=== PATIENT | female | born 1975 | race Caucasian/White ===

== ENCOUNTER 2016-08-13 12:53 | Outpatient (CLI) | payer OTHER ==
[~2016-08-13 12:53] MED LIST: LEVO50TA5 PO; PROG1.3G TP; [UNRECOGNIZED DRUG - CODE] PO
[2016-08-13 13:23] VITALS: BP 120/66
== END 2016-08-13 16:30 | disposition home or self-care (01) ==
LOC: LDOP 12:53
PROVIDERS: ATTEND Obstetrics & Gynecology
DX: O09.513 Supervision of elderly primigravida, third trimester (principal); O36.8130 Decreased fetal movements, third trimester, not applicable or unspecified; O26.893 Other specified pregnancy related conditions, third trimester; M54.9 Dorsalgia, unspecified; O12.03 Gestational edema, third trimester; Z3A.35 35 weeks gestation of pregnancy
CPT/HCPCS: 59025; 76819; 81001; 99211; G0463

== ENCOUNTER 2016-09-04 03:24 | Inpatient (IN) | payer OTHER ==
[~2016-09-04] VITALS: Ht 154.9 cm; Wt 97.0 kg
[2016-09-04] MEDS ORDERED: FENTANYL PF 100 MCG/2ML ONE ×2 (03:30→04:08)
[2016-09-04] MEDS ORDERED: METOCLOPRAMIDE 5 MG/ML, 2ML ONE ×2 (03:57→04:07)
[2016-09-04] MEDS ORDERED: SODIUM CITRATE/CITRIC ACID 30 ML UDC ONE (03:57)
[2016-09-04] MEDS ORDERED: PROMETHAZINE 25 MG/ML, 1ML IV PRN (04:00)
[2016-09-04] MEDS ORDERED: SODIUM CITRATE/CITRIC ACID 30 ML UDC PO PRN (04:00)
[2016-09-04] MEDS ORDERED: HYDROcodone/APAP 7.5-325MG/15ML UDC PO PRN (04:00)
[2016-09-04] MEDS ORDERED: FENTANYL PF 100 MCG/2ML IV PRN (04:00)
[2016-09-04] MEDS ORDERED: MIDAZOLAM 1 MG/ML, 2ML IV PRN (04:00)
[2016-09-04] MEDS ORDERED: ONDANSETRON 2MG/ML, 2ML IVPush PRN (04:00)
[2016-09-04] MEDS ORDERED: OXYcodone 5 MG/5 ML ORAL.SOL UDC PO PRN (04:00)
[2016-09-04] MEDS ORDERED: MEPERIDINE/PF 25MG/0.5ML IVPush PRN (04:00)
[2016-09-04] MEDS ORDERED: EPHEDRINE 50 MG/ML, 1ML IVPush PRN (04:00)
[2016-09-04] MEDS ORDERED: ALBUTEROL SULFATE 2.5 MG/3 ML NPPB PRN (04:00)
[2016-09-04] MEDS ORDERED: METOCLOPRAMIDE 5 MG/ML, 2ML IVPush PRN (04:00)
[2016-09-04] MEDS ORDERED: OXYTOCIN 10 UNITS/ML, 1ML ONE (04:07)
[2016-09-04] MEDS ORDERED: SUCCINYLCHOLINE 20 MG/ML, 10ML ONE (04:07)
[2016-09-04] MEDS ORDERED: ONDANSETRON 2MG/ML, 2ML ONE (04:07)
[2016-09-04] MEDS ORDERED: PHENYLEPHRINE 10 MG/ML ONE (04:07)
[2016-09-04] MEDS ORDERED: CEFAZOLIN 1,000 MG ONE (04:07)
[2016-09-04] MEDS ORDERED: PROPOFOL 10 MG/ML, 20ML ONE (04:07)
[2016-09-04] MEDS ORDERED: DEXAMETHASONE 4 MG/ML, 1ML ONE (04:07)
[2016-09-04 04:44] LABS: DIFF TOTAL CELLS COUNTED 100 CELL DIFF
[2016-09-04 04:46] LABS: VERIFY COUNTS? YES
[2016-09-04] MEDS: OXYTOCIN 30U/ 0.9% NaCL 500ML 500 ML IV SCH ×16 (05:25→23:06)
[2016-09-04] MEDS ORDERED: MEASLES,MUMPS&RUBELLA VACC/PF 0.5 ML SQ-VACC PRN (05:30)
[2016-09-04] MEDS ORDERED: RHOGAM FROM BLOOD BANK 1 NOTE EA IM/IV ONE (05:30)
[2016-09-04] MEDS ORDERED: OXYcodone IR 5MG TABLET PO PRN (05:30)
[2016-09-04] MEDS ORDERED: ONDANSETRON 2MG/ML, 2ML IV PRN (05:30)
[2016-09-04] MEDS: PLEASE ENTER HEIGHT AND WEIGHT MC SCH ×3 (05:30→21:30)
[2016-09-04] MEDS ORDERED: DOCUSATE 100 MG CAPSULE PO PRN (05:30)
[2016-09-04] MEDS ORDERED: MISOPROSTOL 200 MCG TABLET PR PRN (05:30)
[2016-09-04] MEDS ORDERED: HYDROcodone/APAP 5/325 TABLET PO PRN (05:30)
[2016-09-04] MEDS ORDERED: MEPERIDINE/PF 100 MG/ML ONE (05:36)
[2016-09-04] MEDS ORDERED: OXYTOCIN 30U/ 0.9% NaCL 500ML 500 ML ONE (06:22)
[2016-09-04 06:33] LABS: DIFF TOTAL CELLS COUNTED 100 CELL DIFF
[2016-09-04 06:36] LABS: VERIFY COUNTS? YES
[2016-09-04 08:00] VITALS: BP 117/60
[2016-09-04] MEDS: PRENATAL VIT/IRON/FA 1 EACH TABLET PO SCH ×4 (09:00→23:05)
[2016-09-04] MEDS ORDERED: METHYLERGONOVINE 0.2 MG/ML IM ONE (09:00)
[2016-09-04] MEDS ORDERED: MISOPROSTOL 200 MCG TABLET ONE (09:00)
[2016-09-04 11:55] VITALS: BP 120/78
[2016-09-04 15:21] LABS: DIFF TOTAL CELLS COUNTED 100 CELL DIFF
[2016-09-04 15:24] LABS: VERIFY COUNTS? YES
[2016-09-04 15:25] VITALS: BP 106/69
[2016-09-04] MEDS ORDERED: IBUPROFEN 200 MG TABLET ONE (15:33)
[2016-09-04] MEDS: IBUPROFEN 600 MG TABLET PO PRN (15:38)
[2016-09-04] MEDS ORDERED: PLEASE ENTER HEIGHT AND WEIGHT MC SCH (16:30)
[2016-09-04 20:00] VITALS: BP 122/79
[2016-09-05] MEDS: OXYTOCIN 30U/ 0.9% NaCL 500ML 500 ML IV SCH ×3 (00:03→02:55)
[2016-09-05 00:30] VITALS: BP 115/67
[2016-09-05 05:00] VITALS: BP 109/46
[2016-09-05] MEDS ORDERED: METHYLERGONOVINE 0.2 MG/ML IM ONE (07:30)
[2016-09-05 08:30] VITALS: BP 104/66
[2016-09-05 12:30] VITALS: BP 110/73
[2016-09-05] MEDS: IBUPROFEN 600 MG TABLET PO PRN (14:08)
[2016-09-05] MEDS ORDERED: IBUP-1222 PO (17:11)
[2016-09-05] MEDS ORDERED: DOCU-30 PO (17:12)
== END 2016-09-05 18:00 | disposition home or self-care (01) | DRG 769 ==
LOC: LDIP 03:24 → 2NW 07:31
PROVIDERS: ADMIT Obstetrics & Gynecology; ATTEND Obstetrics & Gynecology
PROC: 10D17ZZ Extraction of Products of Conception, Retained, Via Natural or Artificial Opening (ICD-10-PCS; principal; 2016-09-04)
PROC: 30233N1 Transfusion of Nonautologous Red Blood Cells into Peripheral Vein, Percutaneous Approach (ICD-10-PCS; 2016-09-04)
DX: Z39.0 Encounter for care and examination of mother immediately after delivery (principal); O99.285 Endocrine, nutritional and metabolic diseases complicating the puerperium; E03.9 Hypothyroidism, unspecified
CPT/HCPCS: 36415; 82962; 85025; 86850; 86900; 86923; 88307; J0690; J1100; J2405; J2704; J3010; J0330; J2210; J2370; J2590; J2765; P9016